=== PATIENT | male | born 1955 | race Caucasian/White ===

== ENCOUNTER 2020-08-16 08:31 | Outpatient (CLI) | payer MEDICARE, BC, MEDICAID, SELFPAY ==
--- NOTE | ~2020-08-16 | XR_ITS ---
EXAMINATION: XR barium swallow modified EXAM DATE: 08/16/2020 09:19 INDICATION: R13.10 - Dysphagia, unspecified . TECHNIQUE: Modified barium esophagram was performed by myself to administered fluoroscopy, in conjun ction with speech pathologist who administered barium in varying consistencies as per speech patholog ist documentation. This was recorded on tape. Pulsed dose reduction fluoroscopy was used with fluor oscopic time of 1.5 minutes. A total of 1 images obtained for the exam. The DAP for this procedure was 1.6 Gycm2. FINDINGS: Oral stage: Adequate function. Pharyngeal phase: Adequate function. Laryngeal penetration: Trace, thin liquids, ejected. Aspiration: None. Laryngeal sensitivity: Present. IMPRESSION: Patient tolerated oral feedings in the upright position. Please refer to speech patholo gist findings and specific feeding recommendations. Reviewed, dictated and finalized at location [facility]. IMPRESSION: Patient tolerated oral feedings in the upright position. Please r efer to speech pathologist findings and specific feeding recommendations.
--- NOTE | 2020-08-16 09:52 | STOPEVAL ---
MODIFIED BARIUM SWALLOW EVALUATION: Thank you for referring Rajiv Souza to [facility].? Attending Provider: Timothy Phillips MD Outpatient Past Medical History Neurological History Hx Other Neurological Disorders Yes: cerebral palsy Prior Level of Function Prior Swallow Level Prior Intake Method Oral Prior Diet Regular (Level 7 Diet) Prior Liquid Consistency Thin (Level 0 Diet) Comments Additional Prior Level of Function reportedly eats fast & takes Comments big bites of food Pain Assessment Timing of Pain Assessment Timing of Pain Assessment Assessment Self Report Self Report Pain Level 0 Pain Score Pain Score 0: Self Report Modified Barium Swallow Evaluation Recent Swallowing History Reports Dysphagia Yes: coughing History of Dysphagia No Other Related History cerebral palsy History of Pneumonia No Reported Difficult Consistencies Unable to Identify Intake Method Prior to Swallow Oral Evaluation Diet Prior to Swallow Evaluation Regular, Level 7 Liquid Consistency Prior to Swallow Thin (0) Evaluation Consistency Thin Uncontrolled 1 Other Amount tested via cup and straw Oral Preparatory Symptoms Within Functional Limits Oral Preparatory Phase Comments took large amount Oral Phase Symptoms Within Functional Limits Pharyngeal Phase Symptoms Within Functional Limits 8 Point Laryngeal Penetration-Aspiration Material Does Not Enter Airway Scale Pharyngeal Phase Comments noted decreased epiglottic inversion Cervical/Esophageal Symptoms Within Functional Limits Solid Consistency Method of Presentation Spoon Oral Phase Comments chews quickly; prompted to finish chewing what was left in mouth which pt did so without effect. Pharyngeal Phase Symptoms Within Functional Limits 8 Point Laryngeal Penetration-Aspiration Material Does Not Enter Airway Scale Pharyngeal Phase Comments noted decreased epiglottic inversion Cervical/Esophageal Symptoms Within Functional Limits Mixed Consistency Method of Presentation Spoon Oral Preparatory Symptoms Within Functional Limits Oral Phase Symptoms Within Functional Limits Oral Phase Comments chews quickly; prompted to finish chewing what was left in mouth which pt did so without effect. Pharyngeal Phase Symptoms Within Functional Limits 8 Point Laryngeal Penetration-Aspiration Material Does Not Enter Airway Scale Pharyngeal Phase Comments noted decreased epiglottic
== END 2020-08-16 08:32 | disposition home or self-care (01) ==
PROVIDERS: PCP Family Medicine Geriatric Medicine; Visit Provider Otolaryngology
DX: R13.10 Dysphagia, unspecified (principal)
CPT/HCPCS: 92611

== ENCOUNTER 2023-08-16 17:35 | Emergency (ER) | payer MEDICARE, BC, MEDICAID, SELFPAY ==
--- NOTE | ~2023-08-16 | CT_ITS ---
EXAMINATION: CTA chest abdomen pelvis DATE: 08/16/2023 19:55 INDICATION: Hemoptysis. Upper gastrointestinal bleeding. TECHNIQUE: Computed tomography angiography (CTA) of the chest was performed with 100 mL Omnipaque-350 intravenous contrast timed to evaluate the pulmonary arteries. Coronal maximum intensity projection 3D-reconstructions were created by the technologist. Automated exposure control and iterative reconst ruction technique were employed. Exam dose: 1222.94 mGy-cm total exam DLP. COMPARISON: None. FINDINGS: There is moderate contrast opacification of the pulmonary arteries and no evidence of pulmo nary embolism. No thoracic aortic aneurysm or dissection. Normal heart size. No hilar or mediastinal mass lesion or lymphadenopathy. Calcified pulmonary granulomas and occasional calcified splenic granulomas, consistent with old granulomatous disease. No pulmonary infiltrate or consolidation or pulmonary mass lesion is noted. Small sliding hiatal hernia. The gallbladder is present. No gallbladder wall thickening or pericholecystic fluid or fat stranding. No bile duct or pancreatic duct dilatation. No pancreatic calcification. Hepatic steatosis. Spleen is within upper limits of normal, measuring 12.7 cm vertical dimension No h epatic, splenic, pancreatic, and adrenal or renal space-occupying mass lesion is noted. No urinary tr act calculus or hydroureteronephrosis. There is prominent impression upon the base and urinary bladde r by an enlarged prostate gland. The urinary bladder otherwise appears unremarkable. No abdominal aor tic aneurysm. No intraperitoneal or retroperitoneal or pelvic mass lesion or adenopathy or ascites. Small fat-containing right inguinal hernia. Very small fat-containing umbilical hernia. Proximal small bowel measures up to 2.8 cm diameter, within upper limits of normal range. Numerous fl uid containing normal diameter small bowel segments are noted with some small bowel air-fluid levels. Normal appendix. No bowel obstruction, bowel wall thickening, pneumatosis or intraperitoneal free air is detected. Patchy mildly increased density of the mesentery is noted, nonspecific finding which may be due to me senteric panniculitis; other less likely considerations in the differential diagnosis include mesente darby venous thrombosis, adjacent inflammation such as inflammatory bowel disease, typically Crohn's di sease, portal hypertension/cirrhosis, neoplastic infiltration of the lymphatics by gastrointestinal a denocarcinoma, mesenteric lymphoma.. No suspicious osteolytic or osteoblastic lesions. IMPRESSION: No detected pulmonary embolism Small sliding hiatal hernia Hepatic steatosis Spleen upper limits of normal size Borderline dilatation of proximal small bowel, multiple small bowel segments with air-fluid, occasion al air-fluid levels. Consider enteritis Mild mistiness of the mesentery which may be due to the small bowel changes or mesenteric panniculiti s; less likely considerations in the differential diagnosis are mentioned above Reviewed, dictated and finalized at [facility]. Reviewed, dictated and finalized at location A. IMPRESSION: No detected pulmonary embolism Small sliding hiatal hernia Hepatic steatosis Spleen upper limits of normal size Borderline dilatation of proximal small bowel, multiple small bowel segments wi th air-fluid, occasional air-fluid levels. Consider enteritis Mild mistiness of the mesentery which may be due to the small bowel changes or mesenteric panniculitis; less likely considerations in the differential diagnos is are mentioned above
[2023-08-16 17:37] VITALS: BP 144/85; PULSE 105; RESP 20; TEMP 37.2; O2SAT 100
--- NOTE | 2023-08-16 17:58 | ED.GENADULT ---
HPI - General Adult General Chief complaint: GI Bleed Stated complaint: COUGHING UP BLOOD Time Seen by Provider: 08/16/23 17:43 Source: patient and family Mode of arrival: ambulatory Limitations: physical limitation History of Present Illness HPI narrative: This is a 67-year-old male with PMH of cerebral palsy, HLD who presents to the ED with chief complaint of possible GI bleed. Patient is nonverbal and presents with his 2 brothers, one of whom is his caregiver and lives with pt. Family reports that last night patient must of had the episode of bloody emesis as they found dark emesis in his bed this morning. They state that he had some episodes of ?hacking up dark blood this afternoon. They do not feel that he has been having a lot of abdominal pain or chest pain. He has been otherwise healthy. Denies any recent illness, fevers, cough, diarrhea. Denies any dark stools, hematochezia. Denies syncope. They do note that he had a mechanical fall 4 days ago where he fell on his face. No significant change in behavior or mental status. They do note that he had a recent DEXA scan which prompted follow-up CT scan of his abdomen that showed mesenteric adenitis but no other abnormal findings that they report. Related Data Home Medications Medication Instructions Recorded Confirmed atorvastatin 20 mg tablet 20 mg PO DAILY 08/11/20 08/11/20 cetirizine 10 mg tablet 10 mg PO DAILY PRN 08/11/20 08/11/20 mecobalamin (vitamin B12) 1,000 1,000 mcg sublingual DAILY 08/11/20 08/11/20 mcg disintegrating tablet,sublingual Allergies Allergy/AdvReac Type Severity Reaction Status Date / Time No Known Allergies Allergy Verified 08/11/20 08:03 Review of Systems Review of Systems: All systems as dictated in [facility] Family History Family History Mother Breast cancer Cerebrovascular accident Dementia Sibling Lung cancer Grandparent Diabetes mellitus Social History Social History Smoking status: Never smoker Alcohol intake: never Substance use: never Substance use type: does not use Exam Narrative: GENERAL: Nonverbal. Well-appearing, well-nourished, and in no acute distress. Pleasant and resting comfortably. Gives fist bumps. HEAD: Normocephalic, atraumatic. EYES: PERRLA and EOMI. ENT: Scant dried blood noted to the teeth. Oropharynx is otherwise clear. Airway intact Nares clear, no rhinorrhea or epistaxis. Mucous membranes moist. NECK: Supple. No adenopathy or masses. CHEST: No respiratory distress. Clear to auscultation. No wheezes rales or rhonchi HEART: Regular rate and rhythm. No murmur heard. Normal peripheral pulses. ABDOMEN: Soft, grossly nontender, nondistended, normal active bowel sounds. MSK: Normal range of motion. No edema. SKIN: Warm, dry, no rash. NEURO: Nonverbal. Mental status and behavior normal according to family. PSYCH: Normal mood and affect. Course Vital Signs Vital signs: Vital Signs Temperature 98.9 F 08/16/23 17:37 Pulse Rate 105 H 08/16/23 17:37 Respiratory Rate 20 08/16/23 17:37 Blood Pressure 144/85 H 08/16/23 17:37 Pulse Oximetry 100 08/16/23 17:37 Oxygen Delivery Room Air 08/16/23 17:37 Temperature 98.9 F 08/16/23 17:37 Pulse Rate 88 08/16/23 21:09 Respiratory Rate 15 08/16/23 21:09 Blood Pressure 132/84 08/16/23 21:09 Pulse Oximetry 100 08/16/23 21:09 Oxygen Delivery Room Air 08/16/23 17:37 Medical Decision Making MDM Narrative Medical decision making narrative: This is a 67-year-old male who presents to the ED with chief complaint of possible GI bleed. He he is nonverbal at baseline with cerebral palsy. Vitals are normal. Exam shows patient is resting comfortably with no evidence of acute abdomen. There is some dried blood on his teeth. Lab work shows grossly normal CBC. CMP relat
--- NOTE | 2023-08-16 18:01 | ECG_ITS ---
SEE SCANNED COPY FOR CONFIRMED REPORT MTDD
[2023-08-16] MEDS: PANTOPRAZOLE SODIUM IV 40 MG VIAL IV PUSH (18:29)
[2023-08-16] MEDS: ONDANSETRON INJ 4 MG/2 ML VIAL IV PUSH (18:30)
[2023-08-16] MEDS: SODIUM CHLORIDE 0.9% IV 1,000 ML 999 ML IV CONT (18:30)
[2023-08-16 18:36] LABS: INR 1.1; Prothrombin Time 14.7 Seconds (11.1-14.7)
[2023-08-16 18:38] LABS: Lactic Acid Reflex 1.4 mmol/L (0.7-2.0)
[2023-08-16 18:40] LABS: Partial Thromboplastin Time 27.7 Seconds (22.3-36.8)
[2023-08-16 19:28] LABS: Alanine Aminotransferase 30 U/L (6-50); Alkaline Phosphatase 77 U/L (38-126); Anion Gap 7 mmol/L (4-12); Aspartate Amino Transferase 25 U/L (17-59); Bilirubin,Total 1.5 mg/dL (0.2-1.3); Blood Urea Nitrogen 25 mg/dL (9-20); Calcium 8.5 mg/dL (8.4-10.2); Carbon Dioxide 20 mmol/L (22-30); Chloride 109 mmol/L (98-107); Estimated CRCL calculation 90 ml/min; Estimated Glomerular Filt Rate > 60; Glucose 129 mg/dL (65-110); Lipase 76 U/L (23-300); Magnesium 1.9 mg/dL (1.6-2.3); Potassium 3.7 mmol/L (3.4-5.0); Sodium 136 mmol/L (137-145)
[2023-08-16 19:35] LABS: Basophils Percent Auto 0.2 % (0.2-1.2); Eosinophils Percent Auto 0.1 % (0-4.4); Immature Granulocyte Absolute 0.03 K/mm3 (0.00-0.031); Immature Granulocyte Percent A 0.3 % (0-0.5); Lymphocytes Absolute Auto 0.41 K/mm3 (0.9-3.2); Lymphocytes Percent Auto 4.5 % (18.3-44.2); Mean Corpuscular HGB Conc 34.1 g/dl (32-36); Mean Platelet Volume 9.9 fl (7.4-10.4); Monocytes Absolute Auto 0.6 K/mm3 (0.1-0.6); Neutrophils Absolute Auto 8.2 K/mm3 (1.3-6.7); Neutrophils Percent Auto 88.9 % (45.5-73.1); Platelet Count Result 174 k/mm3 (150-375); Red Cell Distribution Width 13.1 % (11.5-14.5); White Blood Count 9.2 K/mm3 (4.5-10.0)
[2023-08-16 21:09] VITALS: BP 132/84; PULSE 88; RESP 15; O2SAT 100
== END 2023-08-16 21:10 | disposition home or self-care (01) ==
PROVIDERS: Emergency Provider Physician Assistant
DX: R11.2 Nausea with vomiting, unspecified (principal); G80.9 Cerebral palsy, unspecified; E78.5 Hyperlipidemia, unspecified
CPT/HCPCS: 36415; 71275; 74174; 80053; 82248; 83605; 83690; 83735; 85025; 85610; 85730; 86850; 86900; 86901; 93005; 96361; 96374; 96375; 99284; C9113; J2405; J7030; Q9967

== ENCOUNTER 2023-10-14 12:30 | Outpatient (CLI) | payer MEDICARE, BC, MEDICAID, SELFPAY ==
--- NOTE | ~2023-10-14 | CT_ITS ---
CT of the Abdomen and Pelvis: Indication: Mesenteric lymphadenitis Technique: 2.5 mm axial scans were obtained through the abdomen and pelvis following intravenous adm inistration of 100 cc of Omnipaque 350. Dose reduction technique was used on this scan by utilizing a utomated exposure control and iterative reconstruction technique. The dose-length product (DLP) was 8 34.50 mGy-cm. COMPARISON: 08/16/2023 Findings: Scans through the lung bases are unremarkable. The liver, spleen, pancreas, gallbladder, and adrenal glands are within normal limits. Parapelvic merlene al cysts are present. No evidence of aortic aneurysm. There is haziness in the central mesentery, wit h shotty lymph nodes, compatible with mesenteric panniculitis.. No bowel obstruction or bowel wall thickening. There is no evidence to suggest acute appendicitis. Images through the pelvis were performed. Urinary bladder unremarkable. Prostate gland markedly enlar ged, indenting the bladder base. No ascites. Impression: Mesenteric panniculitis, similar to prior exam. Markedly enlarged prostate gland. Reviewed, dictated and finalized at [facility]. Impression: Mesenteric panniculitis, similar to prior exam. Markedly enlarged prostate gland.
[2023-10-14 13:05] LABS: Estimated Glomerular Filt Rate > 60
== END 2023-10-14 12:31 | disposition home or self-care (01) ==
PROVIDERS: Visit Provider Nurse Practitioner
DX: I88.0 Nonspecific mesenteric lymphadenitis (principal); N40.0 Benign prostatic hyperplasia without lower urinary tract symptoms
CPT/HCPCS: 74177; Q9967

== ENCOUNTER 2023-11-27 00:51 | Day surgery (SDC) | payer MEDICARE, BC, MEDICAID, SELFPAY ==
[2023-11-13 14:05] VITALS: BMI 28.8
[2023-11-27 07:08] VITALS: BP 124/74; PULSE 107; RESP 18; TEMP 36.1; O2SAT 98; BMI 27.6
[2023-11-27] MEDS: LACTATED RINGERS 1,000 ML 150 ML IV CONT (07:36)
--- NOTE | 2023-11-27 07:56 | WPDANESEPPF ---
Anes - Initial Pre Proc Eval Procedure: Operation Date: 11/27/23 08:30 Proposed Procedures p Esophagogastroduodenoscopy & Colonoscopy - Juanpablo Mora MD Date/Time: 11/27/23 07:56 Surgeon: Juanpablo Mora MD Pre Op Diagnosis: Hematemesis, Noninfective gastroenteritis and coli Patient Data Age: 67 Gender: M Height: 1.75 m Weight: 85 kg Last Vital Signs Temp 97.0 F L 11/27/23 07:08 Pulse 107 H 11/27/23 07:08 Resp 18 11/27/23 07:08 BP 124/74 11/27/23 07:08 Pulse Ox 98 11/27/23 07:08 O2 Del Method Room Air 11/27/23 07:08 Allergies Allergy/AdvReac Type Severity Reaction Status Date / Time No Known Allergies Allergy Verified 11/27/23 07:19 Home Medications Medication Instructions Recorded Confirmed Type atorvastatin 20 mg tablet 20 mg PO DAILY 08/11/20 11/27/23 History cetirizine 10 mg tablet 10 mg PO DAILY PRN allergies 08/11/20 11/27/23 History fluticasone propionate 50 2 spray intranasal BID #16 mL 08/11/20 11/27/23 Rx mcg/actuation nasal spray,suspension (Flonase Allergy Relief) mecobalamin (vitamin B12) 1,000 1,000 mcg sublingual DAILY 08/11/20 11/27/23 History mcg disintegrating tablet,sublingual ondansetron 4 mg disintegrating 4 mg PO Q8H PRN nausea and 08/16/23 11/27/23 Rx tablet vomiting #10 tabs omeprazole 40 mg capsule,delayed 40 mg PO DAILY #30 caps 08/29/23 11/27/23 Rx release Patient hx anesthesia problems: none Family hx anesthesia problems: none Results Review: All pre-operative results and documents have been reviewed as part of the pre-operative evaluation. [facility] Family History Family History Mother Breast cancer Cerebrovascular accident Dementia Sibling Lung cancer Grandparent Diabetes mellitus Social History Social History Smoking status: Never smoker Alcohol intake: never Substance use: never Substance use type: does not use Living arrangements: with family Additional living arrangements comments: lives with brotherBlayne Spiritual care concerns: No Anes - Eval Final PreProcedure Day of Procedure 11/27/23 07:56 Patient weight: normal Heart: regular rate and rhythm Lungs: clear to auscultation Airway: Mallampati scale class III Neurological: alert and oriented Last oral intake: >/= 8 hours ASA classification: III Emergent: no Anesthetic plan: proceed Anesthesia type and monitoring: general GIVS and standard monitoring Results Review: All pre-operative results and documents have been reviewed as part of the pre-operative evaluation. Informed Consent: The patient's anesthetic plan and its attendant risks and benefits were discussed with the patient/family/POA. Questions were solicited and answers provided to the satisfaction of the patient/family/POA.
--- NOTE | 2023-11-27 08:31 | PM.HPGS ---
History of Present Illness History of Present Illness Consent: Risks, benefits, and alternatives have been discussed and questions answered. Patient agrees to proceed with procedure. Chief complaint: Hematemesis, Noninfective gastroenteritis and coli Narrative: Rajiv Souza is a 67 year old male here for egd and colonoscopy, 08/2023 had coffee ground emesis. He has underlying cerebral palsy and is nonverbal and is here with family. He had a colonoscopy in [address] [place] with diverticulosis and internal and external hemorrhoids with recommendations repeat in 10 years. He has never had EGD. CT scan showed Mesenteric lymphadenitis. No more episodes since last visit. Review of Systems Review of Systems: All systems reviewed & are unremarkable except as noted in HPI and below PMFSH Family History Family History Mother Breast cancer Cerebrovascular accident Dementia Sibling Lung cancer Grandparent Diabetes mellitus Social History Social History Smoking status: Never smoker Alcohol intake: never Substance use: never Substance use type: does not use Living arrangements: with family Additional living arrangements comments: lives with brotherBlayne [facility] care concerns: No Meds Home Medications and Allergies Home Medications Medication Instructions Recorded Confirmed Type atorvastatin 20 mg tablet 20 mg PO DAILY 08/11/20 11/27/23 History cetirizine 10 mg tablet 10 mg PO DAILY PRN allergies 08/11/20 11/27/23 History fluticasone propionate 50 2 spray intranasal BID #16 mL 08/11/20 11/27/23 Rx mcg/actuation nasal spray,suspension (Flonase Allergy Relief) mecobalamin (vitamin B12) 1,000 1,000 mcg sublingual DAILY 08/11/20 11/27/23 History mcg disintegrating tablet,sublingual ondansetron 4 mg disintegrating 4 mg PO Q8H PRN nausea and 08/16/23 11/27/23 Rx tablet vomiting #10 tabs omeprazole 40 mg capsule,delayed 40 mg PO DAILY #30 caps 08/29/23 11/27/23 Rx release Allergies Allergy/AdvReac Type Severity Reaction Status Date / Time No Known Allergies Allergy Verified 11/27/23 07:19 Vital Signs Vital Signs - 24 hr 11/27/23 07:08 Temperature 97.0 F L Pulse Rate 107 H Respiratory Rate 18 Blood Pressure 124/74 Pulse Oximetry 98 Oxygen Delivery Room Air Exam Const: General: comfortable and no acute distress HENMT: Face/Nose/Sinus: Normal nares present Eyes: General: appearance normal, both eyes and all related structures Neck: Neck: no JVD Resp: Auscultation: clear to auscultation bilaterally Cardio: Rate: regular rate Rhythm: regular rhythm GI: Inspection: non-distended GI Palp: Yes Soft to palpation Skin: General skin exam: normal color Neuro: General: gait normal Speech: normal speech Extrem: General: normal to inspection Psych: Mental Status: mental status grossly normal Assessment and Plan Assessment and plan (1) Enteritis: Code(s): K52.9 - Noninfective gastroenteritis and colitis, unspecified Status: Acute Assessment and Plan: resolved colonoscopy (2) Coffee ground emesis: Code(s): K92.0 - Hematemesis Status: Acute Assessment and Plan: egd
--- NOTE | 2023-11-27 08:44 | SUR.OPER ---
EGD ended at 0837, colon began at 0844.
[2023-11-27 08:56] VITALS: BP 119/82; PULSE 88; RESP 20; O2SAT 97
[2023-11-27 09:06] VITALS: BP 109/82; PULSE 89; RESP 20; O2SAT 99
[2023-11-27 09:16] VITALS: BP 126/74; PULSE 84; RESP 20; O2SAT 99
== END 2023-11-27 09:35 | disposition home or self-care (01) ==
PROVIDERS: Referring Provider Nurse Practitioner; Visit Provider Internal Medicine Gastroenterology
PROC: 0DJ08ZZ Inspection of Upper Intestinal Tract, Via Natural or Artificial Opening Endoscopic (ICD-10-PCS; CPT 43235; principal; 2023-11-27 08:30)
DX: D12.0 Benign neoplasm of cecum (principal); D12.2 Benign neoplasm of ascending colon; K57.30 Diverticulosis of large intestine without perforation or abscess without bleeding; K64.8 Other hemorrhoids; K44.9 Diaphragmatic hernia without obstruction or gangrene; G80.9 Cerebral palsy, unspecified
CPT/HCPCS: 45380; 45385; 43235; 88305; J2704; J7120

== ENCOUNTER 2024-09-23 07:28 | Outpatient (CLI) | payer MEDICARE, BC, MEDICAID, SELFPAY ==
--- NOTE | ~2024-09-23 | CT_ITS ---
CT of the Abdomen and Pelvis: Indication: Mesenteric lymphadenopathy Technique: 2.5 mm axial scans were obtained through the abdomen and pelvis following intravenous adm inistration of 100 cc of Omnipaque 350. Dose reduction technique was used on this scan by utilizing a utomated exposure control and iterative reconstruction technique. The dose-length product (DLP) was 6 55.46 mGy-cm. COMPARISON: 10/14/2023 Findings: Scans through the lung bases are unremarkable. The liver, spleen, pancreas, gallbladder, adrenals and kidneys are within normal limits. No evidence of aortic aneurysm. No lymphadenopathy. No bowel obstruction or bowel wall thickening. There is no evidence to suggest acute appendicitis. Th ere is haziness in the central mesentery with shotty lymph nodes present, most compatible with mesent greer panniculitis. Images through the pelvis were performed. Urinary bladder unremarkable. Prostate gland is significant ly enlarged. No ascites. Impression: Mesenteric panniculitis,, with lymph nodes probably minimally decreased from prior exam. Enlarged prostate gland. Reviewed, dictated and finalized at location . Impression: Mesenteric panniculitis,, with lymph nodes probably minimally decreased from pr ior exam. Enlarged prostate gland.
[2024-09-23 07:53] LABS: Estimated Glomerular Filt Rate > 60
== END 2024-09-23 07:29 | disposition home or self-care (01) ==
PROVIDERS: Visit Provider Nurse Practitioner
DX: R59.0 Localized enlarged lymph nodes (principal); N40.0 Benign prostatic hyperplasia without lower urinary tract symptoms; K65.4 Sclerosing mesenteritis
CPT/HCPCS: 74177; Q9967

== ENCOUNTER 2024-10-28 16:17 | Outpatient (CLI) | payer MEDICARE, BC, MEDICAID, SELFPAY ==
--- NOTE | 2024-10-28 16:35 | CY_PTH ---
PATIENT: Rajiv Souza LOC: [facility] U#:[id number] AGE/SX: 68/M ROOM: RE10/28/[address]: Lee Hendricks MD : 1955 BED: DIS: 10/28/2024 SPEC #: [id number] RECD: 10/29/24 06:37 STATUS: MICHAEL RERakan #: [id number] DOMINGO: 10/28/24 16:[address]: Lee Hendricks DEPT: [facility] Cytology RECD BY: Mady Armenta Tissues: A - Flow Procedures: Flow Cytometry
[2024-10-28 16:57] LABS: Basophils Absolute Auto 0.1 K/mm3 (0.0-0.1); Basophils Percent Auto 0.7 % (0.2-1.2); Eosinophils Absolute Auto 0.2 K/mm3 (0-0.3); Eosinophils Percent Auto 2.7 % (0-4.4); Hematocrit 45.6 % (42.0-52.0); Hemoglobin 15.5 g/dL (14.0-18.0); Immature Granulocyte Absolute 0.02 K/mm3 (0.00-0.031); Immature Granulocyte Percent A 0.3 % (0-0.5); Lymphocytes Absolute Auto 1.55 K/mm3 (0.9-3.2); Lymphocytes Percent Auto 23.1 % (18.3-44.2); Mean Corpuscular Hemoglobin 30.1 pg (26-34); Mean Corpuscular Volume 88.5 fl (80-100); Mean Platelet Volume 9.7 fl (7.4-10.4); Monocytes Absolute Auto 0.6 K/mm3 (0.1-0.6); Monocytes Percent Auto 8.6 % (2.6-8.5); Neutrophils Absolute Auto 4.3 K/mm3 (1.3-6.7); Neutrophils Percent Auto 64.6 % (45.5-73.1); Platelet Count Result 205 k/mm3 (150-375); Red Blood Count 5.15 M/mm3 (4.6-6.20); Red Cell Distribution Width 12.6 % (11.5-14.5); White Blood Count 6.7 K/mm3 (4.5-10.0)
[2024-10-28 17:08] LABS: Alanine Aminotransferase 22 U/L (6-50); Albumin Level 4.1 g/dL (3.5-5.1); Alkaline Phosphatase 79 U/L (38-126); Anion Gap 8 mmol/L (4-12); Aspartate Amino Transferase 29 U/L (17-59); Bilirubin,Total 0.9 mg/dL (0.2-1.3); Blood Urea Nitrogen 20 mg/dL (9-20); CRP < 0.5 mg/dL (<1.0); Calcium 9.2 mg/dL (8.4-10.2); Carbon Dioxide 21 mmol/L (22-30); Chloride 111 mmol/L (98-107); Estimated Glomerular Filt Rate > 60; Glucose 96 mg/dL (65-110); Lactate Dehydrogenase 261 U/L (120-246); Potassium 4.3 mmol/L (3.4-5.0); Sodium 140 mmol/L (137-145); Total Protein 7.7 g/dL (6.3-8.2)
[2024-10-28 17:24] LABS: Erythrocyte Sedimentation Rate 14 mm/hr (0-20)
== END 2024-10-28 16:18 | disposition home or self-care (01) ==
PROVIDERS: Visit Provider Internal Medicine Hematology & Oncology
DX: R59.1 Generalized enlarged lymph nodes (principal)
CPT/HCPCS: 36415; 80053; 83615; 85025; 85652; 86140; 88184